=== PATIENT | male | born 1955 | race African-American/Black ===

== ENCOUNTER → 2017-06-30 | Outpatient (CLI) | payer BC ==
[2015-06-28 10:15] VITALS: BP 142/79
--- NOTE | 2017-06-30 10:42 | KCIC ---
EXAM: Cervical spine MRI without contrast. HISTORY: Neck pain and left shoulder pain. TECHNIQUE: Multiplanar, multisequence magnetic resonance imaging of the cervical spine was performed without contrast. COMPARISON: Radiographs dated 11/27/2015. FINDINGS: There is minimal retrolisthesis of C3 on C4 and C6 on C7. There is degenerative endplate remodeling at all levels. No suspicious osseous lesion is seen. No spinal cord lesion is seen. The skull base and posterior fossa are unremarkable. At C2-C3, there is minimal facet arthropathy. There is no stenosis. At C3-C4, there are bilateral posterior lateral disc osteophyte complexes superimposed on a disc bulge and endplate remodeling. There is mild facet arthropathy. There is uncovertebral arthropathy. There is moderate to severe bilateral foraminal stenosis. At C4-C5, there is a disc bulge and endplate remodeling. There is mild facet arthropathy. There is mild left greater than right foraminal stenosis. At C5-C6, there is a disc bulge and endplate remodeling. There is mild facet arthropathy. There is mild left greater than right foraminal stenosis. At C6-C7, there is a shallow left paracentral disc protrusion superimposed on a disc bulge and endplate remodeling. There is mild left foraminal stenosis. IMPRESSION: Multilevel degenerative changes of the cervical spine, described in detail above. This is most significant at C3-C4, resulting in moderate to severe bilateral foraminal stenosis. Electronically signed by: Snow Humphries MD (06/30/2017 10:39 AM) [facility]
== END | disposition home or self-care (01) ==
LOC: KCIC MRI 10:04
PROVIDERS: ATTEND Family Medicine
DX: M48.02 Spinal stenosis, cervical region (principal)
CPT/HCPCS: 72141

== ENCOUNTER → 2017-07-07 | Outpatient (CLI) | payer BC ==
[2015-06-28 10:15] VITALS: BP 142/79
[~2017-07-07] MED LIST: DILT180C2 PO; IOHEXOL 180 MG/ML 10 ML VIAL. ONE; LOVA20TA2 PO; methylPREDNISolone ACETATE 40 MG/ML VIAL. ONE; methylPREDNISolone ACETATE 80 MG/ML VIAL. ONE
--- NOTE | 2017-07-07 12:09 | PAIN ---
DATE OF SERVICE: 07/07/2017 INITIAL CONSULTATION CHIEF COMPLAINT: Neck and left shoulder pain. HISTORY OF PRESENT ILLNESS: This is a 61-year-old male who gives history of pain and numbness in the left shoulder for about the last 2 years, worse over the past few months. The patient reports no specific injury or action he is aware of, but he did originally work in construction and played a lot of football in his younger days. The patient reports multiple injuries to his neck in the past, but nothing recently. Again, the patient reports intermittent intensity of numbness and tingling in the base of the neck and to the left shoulder and upper extremity in a radicular fashion, some on the anterior aspect of the deltoid, mostly posteriorly; however, in the trapezius and into the triceps region, the patient reports this is worse at night and keeping him up from sleep. It does not affect his bowel or bladder control, his ability to walk or any other activities. He has not noticed any loss of strength in his left upper extremity or arthritis, no symptoms on the right side. He has more tingling and numbness and aggravating irritating pain than actual sharp or stabbing pain. The patient reports again no loss of function, but reports his disability rating from 0 to 10, 10 being the worst is 0 with family and home responsibilities, recreation, occupation, sexual behavior, self-care and is 1 with social activity and 1 with life support activities, especially sleeping. The patient has tried no other therapies at this time. He does stay very active. He works out daily, walks about 5 miles every day and is staying quite physically active. The patient reports he takes Aleve, which does help by about 20%. The patient did have an MRI scan of the cervical spine showing multilevel degenerative changes of cervical spine most significant at C3-C4 resulting in [id number] bilateral foraminal stenosis, C6-C7 shows a shallow left paracentral disk protrusion superimposed on disk bulge with mild left foraminal stenosis and C5-C6 shows mild left greater than right foraminal stenosis as well. PAST MEDICAL HISTORY: Significant for arthritis, gout, hypertension. PREVIOUS SURGERY: Includes colon resection in 2007 for cancer and wart removal on the foot previously as well. CURRENT MEDICATIONS: Include lovastatin and Cardizem. ALLERGIES: The patient has no known drug allergies. FAMILY HISTORY: Significant for no major medical problems or conditions he is aware of. SOCIAL HISTORY: The patient does not drink alcohol, does not smoke. He is and lives with his spouse. He is retired for the past 2 years. 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 REVIEW OF SYSTEMS: The patient's review of systems is positive for those items mentioned in history of present illness. All systems are reviewed and otherwise negative. It is complete, full and well documented on the patient's chart. PHYSICAL EXAMINATION: VITAL SIGNS: Blood pressure 138/73, pulse 60, respirations 16, temperature 97.7 degrees Fahrenheit, height 6 feet 0 inches, weight is 229 pounds. GENERAL: The patient is awake, alert, oriented, appropriate, very pleasant demeanor. HEENT: Head shows normocephalic, atraumatic. Extraocular movements intact, symmetrical. Oral cavity shows mucous membranes moist and pink. Dentition is intact. NECK: Shows anterior throat supple without palpable lymphadenopathy noted. Swallow reflex is symmetrical. CHEST: Shows normal on inspection. Breath sounds clear to auscultation bilaterally. HEART: Shows S1, S2 clear. ABDOMEN: Soft, nontender, nondistended. No palpable organomegaly. No rebound or guarding demonstrated. BACK: Shows spine grossly midline. Cervical lordotic curvature, thoracic kyphotic curvature, and lumbar lordotic curvature, all normal in appearance. Cervical spine shows normal appearance with symmetrical paraspinous musculature. The patient shows full rotational motion of cervical spine, both laterally greater than 45 degrees right and left as well as full extension, full forward flexion without significant increasing pain in any of these maneuvers. With palpation, posterior paraspinous muscle shows some mild tenderness on the left only in inferior aspect of the cervical paraspinous musculature ____ trapezius. No trigger points, no atrophy or hypertrophy, no asymmetry is noted. No radiation of pain, just mildly tender with deep palpation in the left side, not the right. EXTREMITIES: Upper extremities show deep tendon reflexes 2+ in the biceps and triceps tendons. Motor exam is strong with solution consultant strength rated 5/5 as is bicep and tricep flexion and symmetrical. Peripheral pulses are 2+ ____ distribution. No peripheral edema is noted. No clubbing, no cyanosis. Shoulder shrug is strong and intact without loss of strength on resistance, without increase in pain as is abduction of shoulder to 90 degrees without loss of strength on resistance and no increase in pain as well. IMPRESSION: This is a 61-year-old male with: 1. About 2-year history of pain, numbness, tingling in the left neck region, left shoulder and upper extremities in radicular fashion. 2. MRI scan of the cervical spine as noted. 3. Hypertension. 4. Arthritis. PLAN: Options were discussed with the patient including conservative medical management, physical therapy, interventional techniques and he would like to pursue interventional techniques. We discussed cervical epidural steroid injection using description as well as anatomical models to describe the procedure. Risks were then discussed including, but not limited to bleeding, infection, possibility of epidural hematoma and subsequent neurological compromise, dural puncture, headaches, spinal cord and/or nerve damage, side effects of steroid medication and poor results regarding pain control. The patient understands and wished to proceed. The patient will return to clinic in approximately 2 weeks for followup. He was counseled as to return appointment, activity level and side effects to be aware of. DIAGNOSES: 1. Cervical radiculopathy. 2. Cervical degenerative disk disease. PROCEDURE: Cervical epidural steroid injection, translaminar approach C6-C7 level using C-arm fluoroscopic guidance under sterile prep and drape using local anesthetic. MEDICATION INJECTED: A total of 120 mg of Depo-Medrol plus 5 mL of preservative-free normal saline and 2 mL of Isovue for contrast. CONDITION ON DISCHARGE: Stable. The patient tolerated the procedure well, had no complications. BRIGETTE ANDERSEN MD DR: NOHEMI/sheldon JOB#: [id number] / [id number]
== END | disposition home or self-care (01) ==
LOC: PNCL 07:16
PROVIDERS: ATTEND Anesthesiology
DX: M50.123 Cervical disc disorder at C6-C7 level with radiculopathy (principal); M19.91 Primary osteoarthritis, unspecified site; I10 Essential (primary) hypertension
CPT/HCPCS: 62321; J1030; J1040

== ENCOUNTER → 2018-05-27 | Outpatient (CLI) | payer BC ==
[2015-06-28 10:15] VITALS: BP 142/79
[~2018-05-27] MED LIST changes: -IOHEXOL 180 MG/ML 10 ML VIAL. ONE; -methylPREDNISolone ACETATE 40 MG/ML VIAL. ONE; -methylPREDNISolone ACETATE 80 MG/ML VIAL. ONE
--- NOTE | 2018-05-27 11:48 | CARD ---
MR#: [id number] Date of Study: 05/27/2018 Ordering Physician: GEOVANI PHILLIPS, Referring Physician: GEOVANI PHILLIPS, Tech: Katerin Guzman APPROVED REPORT EXAM: Two-dimensional and M-mode echocardiogram with Doppler and color Doppler. Other Information Quality : GoodHR: 60bpm Rhythm : NSR INDICATION Murmur RISK FACTORS Hypertension Hyperlipidemia 2D DIMENSIONS Left Atrium(2D)3.7 (1.6-4.0cm)IVSd1.2 (0.7-1.1cm) Aortic Root(2D)3.9 (2.0-3.7cm)LVDd5.0 (3.9-5.9cm) LVOT Diameter2.3 (1.8-2.4cm)PWd1.1 (0.7-1.1cm) LVDs3.0 (2.5-4.0cm)FS (%) 40.3 % SV83.3 ml Aortic Valve AoV Peak Elias.201.5cm/sAoV VTI47.2cm AO Peak GR.16.2mmHgLVOT Peak Elias.106.0cm/s AO Mean GR.9mmHgAVA (VMAX)2.15cm2 Mitral Valve MV E Kiiqsiyb39.2cm/sMV DECEL [id number] MV A Waadffzt99.3cm/sE/A Ratio1.1 Pulmonary Valve PV Peak Uyyayxyy17.1cm/s Tricuspid Valve TR P. Vsmbjayq567pd/sRAP EELBPCHY2yeNf TR Peak Gr.62oqJpBDZY66wyJb Pulmonary Vein S1 Gjwxlroq41.2cm/sD2 Ubqwtcyh07.3cm/s PVa [id number] LEFT VENTRICLE The left ventricle is normal size. There is mild concentric left ventricular hypertrophy. The left ve ntricular systolic function is normal. The ejection fraction is 55-60%. There is normal LV segmental wall motion. Transmitral Doppler flow pattern is Grade II-pseudonormal filling dynamics. RIGHT VENTRICLE The right ventricle is normal size. There is normal right ventricular wall thickness. The right ventr icular systolic function is normal. ATRIA The left atrium size is normal. The right atrium size is normal. The interatrial septum is intact wit h no evidence for an atrial septal defect or patent foramen ovale as noted on 2-D or Doppler imaging. AORTIC VALVE The aortic valve is mildly thickened. Doppler and Color Flow revealed trace to mild aortic regurgitat ion. There is no significant aortic valvular stenosis. MITRAL VALVE The mitral valve is thickened but opens well. Doppler and Color-flow revealed trace mitral regurgitat ion. TRICUSPID VALVE The tricuspid valve is normal in structure and function. Doppler and Color Flow revealed no tricuspid valve regurgitation noted. PULMONIC VALVE The pulmonic valve is not well visualized. Doppler and Color Flow revealed no pulmonic valvular regur gitation. GREAT VESSELS The aortic root is mildly enlarged. The IVC was not visualized. PERICARDIAL EFFUSION There is no evidence of significant pericardial effusion. Critical Notification Critical Value: No <Conclusion> The left ventricle is normal size. The left ventricular systolic function is normal. The ejection fraction is 55-60%. There is mild concentric left ventricular hypertrophy. There is no significant aortic valvular stenosis. Doppler and Color Flow revealed trace to mild aortic regurgitation. Doppler and Color-flow revealed trace mitral regurgitation. Doppler and Color Flow revealed no tricuspid valve regurgitation noted. Signed by : Geovani Phillips MD Electronically Approved : 05/27/2018 11:48:04
== END | disposition home or self-care (01) ==
LOC: ECHO 09:40
PROVIDERS: ATTEND Internal Medicine Cardiovascular Disease
DX: I35.1 Nonrheumatic aortic (valve) insufficiency (principal); E78.5 Hyperlipidemia, unspecified; I11.9 Hypertensive heart disease without heart failure
CPT/HCPCS: 93306